=== PATIENT | female | born 1965 | race Hispanic/Latino ===

== ENCOUNTER 2018-08-20 06:55 | Outpatient (CLI) | payer OTHER ==
--- NOTE | 2018-08-20 08:09 | ULT ---
ULTRASOUND ABDOMEN: Date: 08/20/18 HISTORY: Abdominal pain. Palpable area in the left upper quadrant. FINDINGS: The liver demonstrates increased echogenicity consistent with fatty infiltration. No focal mass or in trahepatic ductal dilatation seen. The spleen is normal, measuring 10.5 cm in length. No gallstones, gallbladder wall thickening, or pericholecystic fluid is seen. The visualized portions of the pancrea s, aorta, and IVC are unremarkable. The kidneys are normal. No free fluid is seen. The common duct me asures 4.0 mm in diameter. The palpable area in the left upper quadrant corresponds to a 1.5 x 1.7 x 0.8 cm echogenic well circu mscribed mass of uncertain etiology. IMPRESSION: 1. Fatty liver. 2. No evidence of cholelithiasis. 3. Mass in the left upper quadrant. This should be evaluated with a CT scan. POS: GA
== END 2018-08-20 06:56 | disposition home or self-care (01) ==
LOC: SCSULT 06:55
PROVIDERS: ATTEND Family Medicine
DX: R10.10 Upper abdominal pain, unspecified (principal); K76.0 Fatty (change of) liver, not elsewhere classified; R19.00 Intra-abdominal and pelvic swelling, mass and lump, unspecified site
CPT/HCPCS: 76700

== ENCOUNTER 2018-11-05 15:48 | Outpatient (CLI) | payer OTHER | END 2018-11-05 15:49 | disposition home or self-care (01) | LOC: BICMAMMO 15:48 | PROVIDERS: ATTEND Family Medicine | DX: Z12.31 Encounter for screening mammogram for malignant neoplasm of breast (principal); R92.1 Mammographic calcification found on diagnostic imaging of breast; Z80.3 Family history of malignant neoplasm of breast | CPT/HCPCS: 77063; 77067 ==

== ENCOUNTER 2019-11-08 16:14 | Outpatient (CLI) | payer OTHER ==
--- NOTE | 2019-11-08 16:39 | MMO ---
Bilateral MAMMO Bilat Screen [facility]. CLINICAL HISTORY: Patient is 54 years old and is seen for screening. The patient has the following family history of breast cancer: mother, at age 50, malignant (generic). The patient has no personal history of cancer. VIEWS: The views performed were: bilateral craniocaudal with tomosynthesis and bilateral mediolateral oblique with tomosynthesis. FILMS COMPARED: The present examination has been compared to a prior imaging study performed at [facility] on 11/05/2018. This study has been interpreted with the assistance of computer-aided detection. MAMMOGRAM FINDINGS: The breasts are heterogeneously dense, which could obscure a lesion on mammography. There are no suspicious masses, suspicious calcifications, or new areas of architectural distortion. IMPRESSION: THERE IS NO MAMMOGRAPHIC EVIDENCE OF MALIGNANCY. A ROUTINE FOLLOW-UP MAMMOGRAM IN 1 YEAR IS RECOMMENDED. THE RESULTS OF THIS EXAM WERE SENT TO THE PATIENT. ACR BI-RADS Category 1 - Negative MAMMOGRAPHY NOTE: 1. A negative mammogram report should not delay a biopsy if a dominant of clinically suspicious mass is present. 2. Approximately 10% to 15% of breast cancers are not detected by mammography. 3. Adenosis and dense breasts may obscure an underlying neoplasm. Reported by: LOTTIE LOPEZ MD Electonically Signed: [id number]
== END 2019-11-08 16:15 | disposition home or self-care (01) ==
LOC: BICMAMMO 16:14
PROVIDERS: ATTEND Family Medicine
DX: Z12.31 Encounter for screening mammogram for malignant neoplasm of breast (principal); Z80.3 Family history of malignant neoplasm of breast
CPT/HCPCS: 77063; 77067

== ENCOUNTER 2020-11-09 15:41 | Outpatient (CLI) | payer OTHER ==
--- NOTE | 2020-11-09 16:02 | MMO ---
Bilateral MAMMO Bilat Screen [facility]. CLINICAL HISTORY: Patient is 55 years old and is seen for screening. The patient has the following family history of breast cancer: mother, at age 50, malignant (generic). The patient has no personal history of cancer. VIEWS: The views performed were: bilateral craniocaudal with tomosynthesis and bilateral mediolateral oblique with tomosynthesis. FILMS COMPARED: The present examination has been compared to prior imaging studies performed at [facility] [place] on 11/05/2018 and 11/08/2019. This study has been interpreted with the assistance of computer-aided detection. MAMMOGRAM FINDINGS: The breasts are heterogeneously dense, which could obscure a lesion on mammography. There are no suspicious masses, suspicious calcifications, or new areas of architectural distortion. IMPRESSION: THERE IS NO MAMMOGRAPHIC EVIDENCE OF MALIGNANCY. A ROUTINE FOLLOW-UP MAMMOGRAM IN 1 YEAR IS RECOMMENDED. THE RESULTS OF THIS EXAM WERE SENT TO THE PATIENT. ACR BI-RADS Category 1 - Negative MAMMOGRAPHY NOTE: 1. A negative mammogram report should not delay a biopsy if a dominant of clinically suspicious mass is present. 2. Approximately 10% to 15% of breast cancers are not detected by mammography. 3. Adenosis and dense breasts may obscure an underlying neoplasm. Reported by: LOTTIE LOPEZ MD Electonically Signed: [id number]
== END 2020-11-09 15:42 | disposition home or self-care (01) ==
LOC: BICMAMMO 15:41
PROVIDERS: ATTEND Family Medicine
DX: Z12.31 Encounter for screening mammogram for malignant neoplasm of breast (principal); Z80.3 Family history of malignant neoplasm of breast
CPT/HCPCS: 77063; 77067

== ENCOUNTER 2021-11-13 15:30 | Outpatient (CLI) | payer OTHER | END 2021-11-13 15:31 | disposition home or self-care (01) | LOC: BICMAMMO 15:30 | PROVIDERS: ATTEND Family Medicine | DX: Z12.31 Encounter for screening mammogram for malignant neoplasm of breast (principal); Z80.3 Family history of malignant neoplasm of breast | CPT/HCPCS: 77063; 77067 ==